=== PATIENT | female | born 1945 | race Caucasian/White ===

== ENCOUNTER 2017-03-03 10:36 | Emergency (ER) | payer OTHER ==
[2017-03-03 10:41] VITALS: BP 163/80; PULSE 88; RESP 18; TEMP 97.5; O2SAT 96
[2017-03-03] MEDS ORDERED: HYDROGEN PEROXIDE 236 ML BOTTLE TP ONE (12:10)
--- NOTE | 2017-03-03 12:12 | EDPHY ---
H & P Stated Complaint: Tripped and fell;nasal injury,lac to inside of lip,no LOC - Personal History Current Tetanus Diphtheria and Acellular Pertussis (TDAP): Yes - Medical/Surgical History Other PMH: corneal transplants - Social History Smoking Status: Never smoked Time Seen by Provider: 03/03/17 11:51 HPI/ROS: CHIEF COMPLAINT: Mechanical fall hit nose, lip laceration HISTORY OF PRESENT ILLNESS: 72-year-old female, no anticoagulant use, states that prior to arrival she was walking, tripped on [employer], fell forward impacting her face and bridge of nose, sustained abrasion to bridge of nose, epistaxis and a laceration at the you buccal-gingival junction of her mandible midline. No loss of consciousness. No amnesia. No headache. No nausea or vomiting. REVIEW OF SYSTEMS: A ten point review of systems was performed and is negative with the exception of the items mentioned in the HPI PAST MEDICAL/SURGICAL HISTORY: no anticoagulant use, SOCIAL HISTORY: denies alcohol use at time of incident PHYSICAL EXAM 1) GENERAL: Well-developed, well-nourished, alert and oriented. Appears to be in no acute distress. Answering questions appropriately. 2) HEAD: Normocephalic, atraumatic 3) HEENT: Pupils equal, round, reactive to light bilaterally. Negative Horners. There is widening of the bridge of the nose with ecchymosis and abrasion. No deformity or angulation of nose. Dry blood bilateral nares with no active epistaxis. No septal hematoma. No rhinorrhea. No oral trauma. Ears bilaterally with normal tympanic membranes. No hemotympanum. No fluid or blood in the external auditory canal. No raccoon eyes. No Goins sign. Teeth are normally aligned with no gross malocclusion, TMJ bilaterally nontender, facial bones nontender including the zygomatic arch, maxilla mandible. A 1 cm laceration at the junction of the buccal and gingival mucosa is noted of the mandible midline. 4) NECK: No cervical collar is on. Posterior cervical spine is nontender, no stepoff, no effusion. Full range of motion which does not elicit any midline cervical spine pain, no posterior midline tenderness, no step-off. 5) LUNGS: Clear to auscultation bilaterally, no wheezes, no rhonchi, no retractions. No obvious signs of trauma. No chest wall pain. No flaring, no grunting. Moving symmetrically. No crepitus. 6) HEART: Regular rate and rhythm, 7) ABDOMEN: No guarding, no rebound, no focal tenderness, no peritoneal signs, no signs of trauma, no ecchymosis 8) MUSCULOSKELETAL: Moving all extremities, no focal areas of tenderness, no obvious trauma. 9) BACK: No midline vertebral tenderness, no fluctuance, no step-off, no obvious trauma, no visual or palpable abnormality. 10) SKIN: laceration to gingiva DIFFERENTIAL DIAGNOSIS:Not necessarily in any particular order, my differential diagnosis includes, but is not limited to, concussion, skull fracture, intraparenchymal contusion, subarachnoid, subdural and epidural hematoma. The patient understands that this diagnosis is provisional and can never be 100% accurate. (Renetta Blanton) Constitutional: Initial Vital Signs Temperature (C) 36.4 C 03/03/17 10:37 Heart Rate 88 03/03/17 10:37 Respiratory Rate 18 03/03/17 10:37 Blood Pressure 163/80 H 03/03/17 10:37 O2 Sat (%) 96 03/03/17 10:37 O2 Delivery Mode Room Air Allergies/Adverse Reactions: emycin Allergy (Mild, Uncoded 03/03/17 10:41) nausea Home Medications: Medication Instructions Recorded Amoxicillin Trihydrate 500 mg PO Q8 5 Days cap 03/03/17 [Amoxicillin 500mg cap] Fluorometholone 5 ml OP 03/03/17 Levothyroxine [Synthroid 88 mcg 88 mcg PO DAILY06 03/03/17 (*)] Medical Decision Making - Diagnostics Imaging Results: Imaging Impressions Head CT 03/03/17 12:05 Impression: 1. Comminuted, minimally displaced nasal bone fracture. 2. Diffuse cerebral atrophy with periventricular and subcortical low attenuation consistent with chronic microvascular ischemic gliosis. Findings discussed with Mick Blanton PA-C on March 03, 2017 at 1236 hours. Images reviewed by myself (Renetta Blanton) Procedures: Procedure: Laceration repair. I explained the indications, risks and benefits for both laceration repair and anesthetic administration. Verbal consent was obtained from the patient . The laceration on the gingival/buccal mucosa junction was anesthetized using 0.5% bupivicaine with epinephrine digital nerve block. After anesthetic administered the patient was observed for a period of time and had no apparent adverse effects. The wound was cleaned, prepped, draped in normal sterile fashion and explored to its base. No foreign body seen, no foreign bodies palpated. There were no deep structures involved. The wound was repaired with 2 simple interrupted 5 0 Vicryl sutures. The wound repair was simple. The procedure was performed by myself. Patient has been informed that scarring will occur, although efforts have been made to minimize this. (Renetta Blanton) ED Course/Re-evaluation: 12:11 p.m.:Care of patient under supervision of secondary supervising physician Dr Ng . Head CT ordered in this patient for trauma for the following indication: greater than 65 years old 12:51 p.m.: Patient was re-evaluated with serial exams. Discussed her negative imaging results. She is answering questions appropriately with no altered mental status. Regarding her nasal bone fracture I recommended no blowing of nose, Afrin nasal spray for congestion, follow up with ear nose and throat. She would also had a laceration at the gingival-buccal junction of the mandible which was closed in order to prevent food particles from entering this area. I still recommended no consumption of food that contained small particulate matter or crunchy/hard food. I am starting her on prophylactic amoxicillin to cover oral jim. Usual and customary head injury precautions instructions provided. (Renetta Blanton) I did not see this patient while she was in the emergency department. However her care was discussed with the PA while the patient was in the department. I agree with treatment plan and management (Marty Ng) Departure - Departure Disposition: Home, Routine, Self-Care Clinical Impression: Laceration of gingiva Head injury due to trauma Qualifiers: Encounter type: initial encounter Qualified Code(s): S09.90XA - Unspecified injury of head, initial encounter Nasal bone fracture Qualifiers: Encounter type: initial encounter Fracture type: closed Qualified Code(s): S02.2XXA - Fracture of nasal bones, initial encounter for closed fracture Condition: Good Instructions: Nasal Fracture (ED), Laceration (ED), Head Injury (ED) Additional Instructions: ALTHOUGH THERE IS NO EVIDENCE OF SERIOUS HEAD INJURY AT THIS TIME, DELAYED SIGNS CAN APPEAR 24 TO 48 HOURS AFTER INJURY. WE RECOMMEND THAT YOU DESIGNATE A FRIEND OR FAMILY MEMBER TO OBSERVE YOU OVER THE NEXT FEW DAYS TO ENSURE THAT YOUR CONDITION IS PROGRESSING NORMALLY. PLEASE RETURN TO THE EMERGENCY DEPARTMENT (ED) IMMEDIATELY IF YOU HAVE INCREASED HEADACHE, PERSISTENT HEADACHE , VOMITING, WEAKNESS, CONFUSION OR VISUAL PROBLEMS. WE RECOMMEND THAT YOU DO NOT RESUME CONTACT SPORTS OR ACTIVITIES THAT TAKE COORDINATION OR BALANCE SUCH SKIING OR RIDING A BICYCLE UNTIL CLEARED TO DO SO BY YOUR DOCTOR OR BY A NEUROLOGIST. Referrals: Marty Banegas MD [Medical Doctor] - 2-3 days, call for appt. Prescriptions: Amoxicillin Trihydrate [Amoxicillin 500mg cap] 500 mg PO Q8 5 Days cap
== END 2017-03-03 13:09 | disposition home or self-care (01) ==
PROC: 0CQ4XZZ Repair Buccal Mucosa, External Approach (ICD-10-PCS; principal; 2017-03-03)
DX: S02.2XXA Fracture of nasal bones, initial encounter for closed fracture (principal); S01.512A Laceration without foreign body of oral cavity, initial encounter; W01.198A Fall on same level from slipping, tripping and stumbling with subsequent striking against other object, initial encounter; Y99.8 Other external cause status; Y93.01 Activity, walking, marching and hiking

== ENCOUNTER → 2017-10-02 | Outpatient (CLI) | payer OTHER | LOC: FIMAGING 09:29 | PROVIDERS: ATTEND Family Medicine | DX: Z12.31 Encounter for screening mammogram for malignant neoplasm of breast (principal) ==